=== PATIENT | female | born 1975 | race African-American/Black ===

== ENCOUNTER 2017-12-28 14:12 | Emergency (ER) | payer OTHER ==
[~2017-12-28 14:12] MED LIST: COLACE100 M1 PO; PERCOCET 5-3251 EACH PO; SYNTHROID100 MCG PO
--- NOTE | 2017-12-28 15:29 | RADIOLOGY REPORT ---
EXAMINATION: XR LUMBOSACRAL SPINE CLINICAL INFORMATION: Low back pain. COMPARISON: None TECHNIQUE: 2 views FINDINGS: There is no fracture. Vertebrae have normal height and normal alignment. There is mild disc height narrowing at L4-L5. There are no vertebral endplate spurs. The facet joints are normal. Sacroiliac joint is normal. IMPRESSION: Mild disc height narrowing at L4-L5. No acute abnormality.
[2017-12-28] MEDS ORDERED: IBUPROFEN800 M1 PO (16:34)
[2017-12-28] MEDS ORDERED: PERCOCET 5-3251 EACH PO (16:34)
[2017-12-28] MEDS ORDERED: VALIUM5 M2 PO (16:34)
--- NOTE | 2017-12-28 16:35 | ED NECK/BACK PAIN COMPLAINT ---
History of Present Illness General Chief Complaint: Low Back Pain/Injury Stated Complaint: "THIS IS THE 2ND TIME I'VE THROWN MY BACK OUT" Source: patient Exam Limitations: no limitations Vital Signs & Intake/Output Vital Signs & Intake/Output Vital Signs Date Time Temp Pulse Resp B/P B/P Pulse O2 O2 Flow FiO2 Mean Ox Delivery Rate 12/28 1645 98.2 76 18 134/88 98 Room Air 12/28 1418 97.1 75 17 124/79 97 Room Air Allergies Coded Allergies: NO KNOWN ALLERGIES (NKDA) (10/05/10) Reconcile Medications Diazepam (Valium) 5 MG TABLET 1 TAB PO BIDP PRN SPASMS Docusate Sodium (Colace) 100 MG CAPSULE 1 CAP PO BID PRN CONSTIPATION stool softener available over the counter Ibuprofen 800 MG TABLET 1 TAB PO TID PAIN Levothyroxine Sodium (Synthroid) 100 MCG TABLET 0.1 MG PO DAILY AC post- thyroidectomy status 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 C/O 10/10 PAIN. DENIES CHANGES IN BOWEL OR BLADDER. Triage Nurses Notes Reviewed? yes Onset: Abrupt Duration: hour(s):, constant Timing: single episode today Quality/Severity: moderate, severe Location: lumbar spine : No Patient currently breastfeeds: No HPI: 42-year-old female comes into the emergency room for further evaluation of low back pain. Patient reports that she was bending down to grab a tray when she tried to stand up she felt a pull in her back. This occurred at work. She reports that this happened to her before. She denies any numbness tingling. The pain shoots into her hips bilaterally. (Paul Landry) Past History Travel History Traveled to [place] past 21 day No Medical History Any Pertinent Medical History? 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 No (Paul Landry) Review of Systems Review of Systems Constitutional: Reports: no symptoms. Eyes: Reports: no symptoms. Ears, Nose, Throat, Mouth: Reports: no symptoms. Respiratory: Reports: no symptoms. Cardiovascular: Reports: no symptoms. Gastrointestinal/Abdominal: Reports: no symptoms. Musculoskeletal: Reports: see HPI. Skin: Reports: no symptoms. Neurological/Psychological: Reports: no symptoms. All Other Systems: Reviewed and Negative (Paul Landry) Physical Exam Physical Exam General Appearance: well developed/nourished, mild distress Head: atraumatic Eyes: Bilateral: normal appearance. Ears, Nose, Throat, Mouth: hearing grossly normal, moist mucous membrane Neck: normal inspection Respiratory: no respiratory distress Back: decreased range of motion Extremities: normal range of motion Motor: Deficit L4 Right: No Deficit L4 Left: No Deficit L5 Right: No Deficit L5 Left: No Deficit S1 Right: No Deficit S1 Right: No Neurologic/Psych: awake, alert, oriented x 3, normal mood/affect Skin: intact, normal color, warm/dry Core Measures CVA/TIA Diagnosis: No (Paul Landry) Progress Differential Diagnosis: cauda equina syn, herniated disc, myofascial strain, sciatica Plan of Care: 12/28/2017 4:42:22 PM Patient's pain is all reproducible and lower back. Pain is worse with range of motion. No evidence of radiculopathy on exam. No urinary bowel dysfunction. No genital numbness. No weakness in the lower extremity. Normal dorsiflexion of great toe. Gross sensation intact. No saddle paresthesia. Considered things like cauda equina have a do not feel that patient's symptoms at this point in time are consistent with this diagnosis. Patient reevaluated multiple times. Patient has no other symptoms that could be attributing to back pain. No abdominal pain, shortness of breath, chest pain. Patient is to follow-up with primary care doctor for recheck. If symptoms persist patient should be considered for an MRI of the lower back. Patient is to return immediately if any nausea vomiting, fever, weakness in the legs, urinary bowel dysfunction, abdominal pain, chest pain, shortness of breath. No weight loss. No night sweats. Pain is consistent with musculoskeletal pain due to the patient's symptoms mentioned above. Diagnostic Imaging: Viewed by Me: Radiology Read. Discussed w/RAD: Radiology Read. Radiology Impression: PATIENT: GINNA KOCH PRESENT AGE: 42 PATIENT ACCOUNT NO: [id number] : 75 LOCATION: [facility] ORDERING PHYSICIAN: Paul HART SERVICE DATE: 12/28/17 EXAM TYPE: RAD - XRY-LUMBOSACRAL SPINE AP & LAT EXAMINATION: XR LUMBOSACRAL SPINE CLINICAL INFORMATION: Low back pain. COMPARISON: None TECHNIQUE: 2 views FINDINGS: There is no fracture. Vertebrae have normal height and normal alignment. There is mild disc height narrowing at L4-L5. There are no vertebral endplate spurs. The facet joints are normal. Sacroiliac joint is normal. IMPRESSION: Mild disc height narrowing at L4-L5. No acute abnormality. DICTATED BY: Doug Quinn MD DATE/TIME DICTATED:12/28/171523 TRAFFIC SURVEY TECHNICIAN:REBECCA DATE/TIME TRANSCRIBED:1523 CONFIDENTIAL, DO NOT COPY WITHOUT APPROPRIATE AUTHORIZATION. < Electronically signed in Other Vendor System> SIGNED BY: Doug Quinn MD 152 (Paul Landry) Departure Departure Disposition: HOME OR SELF CARE Condition: Stable Clinical Impression Primary Impression: Strain of muscle, fascia and tendon of lower back, initial encounter Referrals: Dorita SEVILLA,Iva Bond (PCP/Family) Additional Instructions: Take ibuprofen, Valium, Percocet for pain. Follow-up with occupational medicine. Return if any other concerns worsening symptoms. Please go over all results of today's visit with your primary care doctor. Contact your primary care doctor to let them know you were here in the emergency room. There may be nonspecific findings which may not be related to your visit today here in the emergency room but may require further evaluation and chronic monitoring by your primary care doctor. If you had a laceration today the chance of foreign body always remains. You should follow-up with your primary care doctor for recheck in 3-5 days for a wound check. If you had an x-ray done there is a chance that a fracture could have been missed on initial read and you should follow-up with your primary care doctor for repeat x-rays if symptoms persist. If your blood pressure was elevated here in the emergency room please have rechecked by hyour primary care doctor within the next 48. If you were prescribed a narcotic here in the emergency room or any type of controlled substances you're not allowed to drive while taking this medication or operate any type of heavy machinery. Narcotics can make you feel lightheaded dizziness nausea and can cause constipation. 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 Thank you for choosing [facility] emergency room. Please return to the emergency room immediately if you have any other concerns worsening of symptoms. Departure Forms: Customer Survey General Discharge Information Industrial Accident Report Prescriptions: Current Visit Scripts Oxycodone HCl/Acetaminophen (Percocet 5-325 MG Tablet) 1 TAB PO BID #10 TAB Diazepam (Valium) 1 TAB PO BIDP PRN SPASMS #10 TAB Ibuprofen 1 TAB PO TID #30 TAB (Paul Landry) PA/LEAD DIE MOLDER Co-Sign Statement Statement: ED Attending supervision documentation- [] I saw and evaluated the patient. I have also reviewed all the pertinent lab results and diagnostic results. I agree with the findings and the plan of care as documented in the PA's/LEAD DIE MOLDER's documentation. [X] I have reviewed the ED Record and agree with the PA's/LEAD DIE MOLDER's documentation. [] Additions or exceptions (if any) to the PAs/LEAD DIE MOLDER's note and plan are summarized below: [] (Evens Faust DO
[2017-12-28 16:45] VITALS: BP 134/88
== END 2017-12-28 16:47 ==
LOC: ERH 14:12
DX: S39.012A Strain of muscle, fascia and tendon of lower back, initial encounter (principal); X50.0XXA Overexertion from strenuous movement or load, initial encounter; Y92.89 Other specified places as the place of occurrence of the external cause; Y93.89 Activity, other specified; F17.210 Nicotine dependence, cigarettes, uncomplicated; E78.5 Hyperlipidemia, unspecified
CPT/HCPCS: 72100; 96372; J1885; J3360